=== PATIENT | male | born 1950 ===

== ENCOUNTER 2018-02-08 17:00 | Emergency (ER) | payer MEDICAID, MEDICARE ==
[2018-02-08] MEDS ORDERED: Iohexol 240 (50 ml) PO STA (17:55)
--- NOTE | 2018-02-08 17:55 | C.PDOC ---
History Of Present Illness <Irena Garcia - Last Filed: 02/08/18 18:58> <Gato Kang - Last Filed: 02/08/18 20:41> 67 year old male presents to the emergency department with complaints of persistent abdominal "firmness" for the last two weeks. Patient reports he is constantly experiencing these symptoms along with reflux-like symptoms. Patient reports his last normal bowel movement was yesterday, status-post using 1 laxative three days ago. Patient denies nausea, vomiting, and fever. He reports that he is eating well with a normal appetite, but complains of some bloating. Patient's past surgical history is negative. VIA TRANS CO PERSIST ABD "FIRMNESS" X 2 WEEKS. CONSTANT. GO REFLUX-LIKE SX. NORMAL BM LAST YESTERDAY. S/P LAXATIVE USE X 1 3 DAYS AGO. NO NV, FEVER. EATING WELL, NORMAL APPETITE. CO BLOATING. PSH NEG. freq hiccups x sev weeks EXAM APPEARS COMFORTABLE NAD ABD SOFT NT ND NO R/G NO ACTIVE HICCUPS REMAINDER NEG (Irena Garcia) History Per: Patient History/Exam Limitations: language barrier (history obtained via [employer]) Onset/Duration Of Symptoms: Other (2 weeks) Current Symptoms Are (Timing): Still Present Location Of Pain/Discomfort: Other Radiation Of Pain To:: None Quality Of Discomfort: Other ("firmness") Exacerbating Factors: denies: Food Last Bowel Movement: Yesterday <Irena Garcia - Last Filed: 02/08/18 18:58> <Gato Kang - Last Filed: 02/08/18 20:41> Time Seen by Provider: 02/08/18 17:44 Chief Complaint (Nursing): Abdominal Pain Past Medical History Reviewed: Historical Data, Nursing Documentation, Vital Signs - Medical History PMH: Anxiety, Hypercholesterolemia, Hypothyroidism Surgical History: No Surg Hx Family History: States: No Known Family Hx - Social History Hx Alcohol Use: No Hx Substance Use: No - Immunization History Hx Tetanus Toxoid Vaccination: No Hx Influenza Vaccination: No Hx Pneumococcal Vaccination: No <Irena Garcia - Last Filed: 02/08/18 18:58> Vital Signs: Last Vital Signs Temp 98.3 F 02/08/18 17:08 Pulse 81 02/08/18 17:08 Resp 20 06/08/18 17:08 BP 165/84 H 06/08/18 17:08 Pulse Ox 97 02/08/18 18:58 Review Of Systems Except As Marked, All Systems Reviewed And Found Negative. Constitutional: Negative for: Fever Gastrointestinal: Positive for: Abdominal Pain, Other (normal appetite, bloating ). Negative for: Nausea, Vomiting <Irena Garcia - Last Filed: 02/08/18 18:58> Physical Exam - Physical Exam Appears: Non-toxic, No Acute Distress Skin: Warm, Dry Head: Atraumatic, Normacephalic Eye(s): bilateral: Normal Inspection Nose: Normal Oral Mucosa: Moist Throat: Normal, No Erythema, No Exudate Neck: Normal Chest: Symmetrical Cardiovascular: Rhythm Regular Respiratory: Normal Breath Sounds, No Rales, No Rhonchi, No Wheezing Gastrointestinal/Abdominal: Soft, No Tenderness, No Distention, No Guarding, No Rebound Neurological/Psych: Oriented x3 <Irena Garcia - Last Filed: 02/08/18 18:58> ED Course And Treatment - Laboratory Results Result Diagrams: 02/08/18 18:03 02/08/18 18:03 ECG: Interpreted By Me, Viewed By Me ECG Rhythm: Sinus Rhythm (62bpm, normal) ECG Interpretation: Normal O2 Sat by Pulse Oximetry: 97 (RA) Pulse Ox Interpretation: Normal - Radiology CXR: Interpreted by Me CXR Interpretation: Yes: No Acute Disease Progress Note: Plan: CT Abdomen and Pelvis with Contrast. EKG. CMP. Lipase. CBC. CXR Two Views. US Abdomen <Irena Garcia Last Filed: 02/08/18 18:58> - Laboratory Results Result Diagrams: 02/08/18 18:03 02/08/18 18:03 <Gato Kang - Last Filed: 02/08/18 20:41> Medical Decision Making <Irena Garcia - Last Filed: 02/08/18 18:58> <Gato Kang - Last Filed: 02/08/18 20:41> Medical Decision Makin: signed over to f/u CT abd pt with abd discomfort, normal labs pt seen and examined, went to bathroom passed large liquid stools and feels much better belly benign pt prefers d/c home and BRAT diet. (Gato Kang) Disposition Counseled Patient/Family Regarding: Diagnosis - Disposition Disposition Time: 19:00 <Irena Garcia - Last Filed: 02/08/18 18:58> Doctor Will See Patient In The: Office Counseled Patient/Family Regarding: Studies Performed, Diagnosis <Gato Kang - Last Filed: 02/08/18 20:41> - Disposition Disposition: HOME/ ROUTINE Condition: GOOD Forms: [facility] (Lithuanian) - Clinical Impression Clinical Impression: Abdominal pain, Diarrhea - Scribe Statement The provider has reviewed the documentation as recorded by the Scribe (Miah June) <Irnea Garcia - Last Filed: 02/08/18 18:58> <Gato Kang - Last Filed: 02/08/18 20:41> - Scribe Statement Provider Attestation: All medical record entries made by the Scribe were at my direction and personally dictated by me. I have reviewed the chart and agree that the record accurately reflects my personal performance of the history, physical exam, medical decision making, and the department course for this patient. I have also personally directed, reviewed, and agree with the discharge instructions and disposition. (Irena Garcia) Physician Patient Turnover Patient Signed Over To: Gato Kang Handoff Comments: BRITTANI CT, DISPO <Irena Garcia - Last Filed: 02/08/18 18:58>
[2018-02-08 18:09] LABS: BASO # 0.1 K/uL (0.0-0.2); BASO % 0.7 % (0.0-2.0); EOS # 0.3 K/uL (0.0-0.7); EOS % 3.6 % (0.0-4.0); HEMOGLOBIN 14.7 g/dL (12.0-18.0); LYMPH # 2.5 K/uL (1.0-4.3); LYMPH % 33.6 % (20.0-40.0); MEAN CELL VOLUME 90.2 fL (80.0-94.0); MEAN CORPUSCULAR HEMOGLOBIN 30.9 pg (27.0-31.0); MEAN CORPUSCULAR HGB CONC 34.3 g/dL (33.0-37.0); MEAN PLATELET VOLUME 7.7 fL (7.2-11.7); NEUT # 3.5 K/uL (1.8-7.0); NEUT % 48.1 % (50.0-75.0); NRBC % 0.1 % (0.0-2.0); RBC 4.74 Mil/uL (4.40-5.90); RED CELL DISTRIBUTION WIDTH 14.9 % (11.5-14.5); WHITE BLOOD COUNT 7.3 K/uL (4.8-10.8)
[2018-02-08] MEDS ORDERED: Iohexol 240 (50 ml) ONE (18:09)
[2018-02-08 18:19] LABS: SQUAMOUS EPITHIAL 1 /hpf (0-5); URINE BACTERIA FEW (<OCC); URINE BILIRUBIN NEGATIVE (NEGATIVE); URINE BLOOD 2+ (NEGATIVE); URINE CLARITY Hazy (Clear); URINE COLOR Yellow (YELLOW); URINE GLUCOSE (UA) NORMAL (Normal); URINE LEUKOCYTE ESTERASE 1+ Leu/uL (Negative); URINE PROTEIN 2+ mg/dL (NEGATIVE); URINE UROBILINOGEN NORMAL mg/dL (0.2-1.0)
[2018-02-08 18:22] LABS: ALB/GLOB RATIO 1.2 (1.0-2.1); CALCIUM 8.6 mg/dl (8.6-10.4)
--- NOTE | 2018-02-08 18:28 | RAD ---
HISTORY: abd pain COMPARISON: Chest radiograph dated 02/14/2017. TECHNIQUE: Chest PA and lateral FINDINGS: LUNGS: No active pulmonary disease. PLEURA: No significant pleural effusion identified. No pneumothorax apparent. CARDIOVASCULAR: Normal. OSSEOUS STRUCTURES: Unchanged. VISUALIZED UPPER ABDOMEN: Normal. OTHER FINDINGS: None. IMPRESSION: No active disease.
--- NOTE | 2018-02-08 20:07 | US ---
EXAM: US Abdomen Limited, Right Upper Quadrant CLINICAL HISTORY: 67 years old, male; Pain; Abdominal pain; Generalized; Additional info: Abd pain TECHNIQUE: Real-time ultrasound of the right upper quadrant with image documentation. COMPARISON: US - RENAL 2016-11-21 13:56 FINDINGS: Liver: Fatty infiltration. No mass. No intrahepatic ductal dilatation. Gallbladder: No gallstones. No wall thickening. No pericholecystic fluid. No sonographic Sood's sign. Common bile duct: No dilatation. No stones. Pancreas: Unremarkable as visualized. Right kidney: Normal echogenicity. Few cysts, largest measuring up to 4.0 cm. No hydronephrosis. IMPRESSION: 1.No acute findings. 2.Non-acute findings are described above.
--- NOTE | 2018-02-08 20:31 | CT ---
EXAM: CT Abdomen and Pelvis With Intravenous Contrast CLINICAL HISTORY: 67 years old, male; Pain; Abdominal pain; Generalized; Additional info: Abd pain TECHNIQUE: Axial computed tomography images of the abdomen and pelvis with intravenous contrast. All CT scans at this facility use one or more dose reduction techniques, viz.: automated exposure control; ma/kV adjustment per patient size (including targeted exams where dose is matched to indication; i.e. head); or iterative reconstruction technique. Coronal and sagittal reformatted images were created and reviewed. CONTRAST: 50 mL of omipaque 240 administered intravenously. COMPARISON: US - RENAL 2016-11-21 13:56 FINDINGS: Limitations: Lack of intravenous contrast. Lung bases: Minimal atelectasis/scarring. Heart: Coronary artery calcifications. Mediastinum: Probable small hiatal hernia. ABDOMEN: Liver: Unremarkable. No mass. Gallbladder and bile ducts: Tiny calcified gallstone. No significant ductal dilation. Pancreas: Few scattered calcifications within pancreas. 1.1 x 1.0 x 1.0 cm hypodense lesion within body of pancreas. No significant ductal dilation. Spleen: No splenomegaly. Adrenals: No mass. Kidneys and ureters: Several probable renal cysts, up to 4.0 cm. No renal calculi. No hydronephrosis. Stomach and bowel: Scattered diverticula within colon. No associated inflammatory stranding. No definite mural thickening. No obstruction. PELVIS: Appendix: Normal caliber. No inflammation. Bladder: Apparent mild bladder wall thickening. Incomplete distention, limiting evaluation. Reproductive: Unremarkable as visualized. ABDOMEN and PELVIS: Intraperitoneal space: No significant fluid collection. No free air. Bones/joints: Degenerative changes of spine. Chronic L5 pars defects with anterolisthesis. No acute fracture. Soft tissues: Small umbilical hernia containing fat. Vasculature: Moderate atherosclerotic disease. No aneurysm. Lymph nodes: No pathologically enlarged lymph nodes. IMPRESSION: 1. Diverticulosis without definite CT evidence of diverticulitis. 2. Possible bladder wall thickening. Clinical correlation is needed. 3. Pancreatic lesion. Recommend nonemergent MRI. 4. Cholelithiasis. 5. Incidental/non-acute findings are described above.
[2018-02-08] MEDS ORDERED: Alum-Mag Hydrox-Simethicone Susp (30 mL) PO STA (20:44)
[2018-02-08 21:14] VITALS: BP 118/74; PULSE 63; RESP 18; TEMP 98.4; O2SAT 96
[2018-02-08] MEDS ORDERED: Aluminum Hydroxide/Magnesium Hydroxide Susp (30 mL) ONE (21:20)
== END 2018-02-08 21:19 | disposition home or self-care (01) ==
LOC: C.ER 17:00
DX: R10.9 Unspecified abdominal pain (principal); R19.7 Diarrhea, unspecified; E78.00 Pure hypercholesterolemia, unspecified; E03.9 Hypothyroidism, unspecified
CPT/HCPCS: 71046; 74176; 76705; 80053; 81001; 83690; 84484; 85025; 87086; 99284; Q9966